=== PATIENT | male | born 1980 ===

== ENCOUNTER 2022-07-19 05:28 | Day surgery (SDC) | payer OTHER ==
[~2022-07-19] VITALS: Ht 180.3 cm; Wt 119.3 kg
[~2022-07-19 05:28] MED LIST: COZAAR50 MG PO
== END 2022-07-19 11:35 | disposition home or self-care (01) ==
LOC: CIR.AMB 05:28
PROVIDERS: ATTEND Urology
DX: Z30.2 Encounter for sterilization (principal); I10 Essential (primary) hypertension; Z91.018 Allergy to other foods; Z20.822 Contact with and (suspected) exposure to COVID-19